=== PATIENT | female | born 2000 | race African-American/Black ===

== ENCOUNTER 2025-03-27 01:23 | Emergency (ER) | payer OTHER ==
[~2025-03-27] VITALS: Ht 154.9 cm; Wt 45.4 kg
[2025-03-27 02:39] VITALS: BP 108/62; O2SAT 98
[2025-03-28 20:09] LABS: CHLAMYDIA TRACHOMATIS NAA Negative (Negative); NEISSERIA GONORRHOEAE NAA Negative (Negative)
== END 2025-03-27 02:40 | disposition home or self-care (01) ==
LOC: ER 01:32
DX: Z00.00 Encounter for general adult medical examination without abnormal findings (principal); F17.290 Nicotine dependence, other tobacco product, uncomplicated; Z87.448 Personal history of other diseases of urinary system
CPT/HCPCS: 87491; 87591; A4606; A4663